=== PATIENT | male | born 1970 | race Caucasian/White ===

== ENCOUNTER 2024-07-30 14:32 | Emergency (ER) | payer MEDICAID, SELFPAY ==
[2024-07-30] VITALS (8 sets, daily range): BP systolic 90–109; BP diastolic 60–80; PULSE 59–72; RESP 12–19; TEMP 36.8; O2SAT 96–100
--- NOTE | ~2024-07-30 | XR_ITS ---
CHEST RADIOGRAPH, PA AND LATERAL CLINICAL HISTORY: chest pain . COMPARISON: None available TECHNIQUE: PA and lateral views of the chest. FINDINGS Sternal wires and mediastinal clips are identified, the wires are midline and intact. The remainder of the cardiomediastinal silhouette is otherwise unremarkable. The lungs are clear. IMPRESSION: No focal infiltrate or effusion. Reviewed, dictated and finalized at location A.
--- NOTE | 2024-07-30 14:47 | ECG_ITS ---
Test Date: 2024-07-30 19:29:19 Measurements Intervals Midnight Rate: 68 P: 55 MN: 164 QRS: 59 QRSD: 94 T: 58 QT: 438 QTc: 466 Interpretive Statements SINUS RHYTHM WITH SINUS ARRHYTHMIA NONSPECIFIC T-WAVE ABNORMALITY Compared to ECG 07/30/2024 14:48:03 NO SIGNIFICANT CHANGES Electronically Signed On 07-31-2024 12:09:00 CDT by Manny Allen M.D.
--- OUTSIDE RECORDS SUMMARY | 2024-07-30 14:59 | XMS_ITS | Patient Health Record ---
Author Organization [facility] Address [address] [place] [address] Care Team Providers Care Seed Packer Name Role Phone Sonya Melendez Primary Care Provider [phone] OrtegaAriel mazain Unavailable [phone] Elio Christianson Unavailable [phone] Tamia Chavarria Unavailable [phone] Allergies Allergen (clinical drug ingredient) Drug/Non Drug Allergy documented on EMR Reaction Allergy Type Onset Date Status No Known Drug Allergy Unknown Drug Allergy Active Results Component Value Reference Range Notes QuantiFERON-TB Gold Plus ([id number] [id number]) Reviewed date:07/24/2024 01:53:09 PM Interpretation: Performing Lab:[facility], [address] [facility], Phone - [phone], Director - Jaquelin Notes/Report: QuantiFERON Incubation Incubation performed. QuantiFERON-TB Gold Plus Negative Negative No response to M tuberculosis antigens detected. Infection with M tuberculosis is unlikely, but high risk individuals should be considered for additional testing (ATS/IDSA/CDC Clinical Practice Guidelines, 2017). The reference range is an Antigen minus Nil result of <0.35 IU/mL. Chemiluminescence immunoassay methodology QuantiFERON Criteria QuantiFERON-TB Gold Plus is a qualitative indirect test for M tuberculosis infection (including disease) and is intended for use in conjunction with risk assessment, radiography, and other medical and diagnostic evaluations. The QuantiFERON-TB Gold Plus result is determined by subtracting the Nil value from either TB antigen (Ag) value. The Mitogen tube serves as a control for the test. QuantiFERON TB1 Ag Value 0.04 QuantiFERON TB2 Ag Value 0.04 QuantiFERON Nil Value 0.02 QuantiFERON Mitogen Value 7.96 CMP 14 Comprehensive Metabol ic Panel* Reviewed date:07/24/2024 01:52:58 PM Interpretation: Performing Lab:[facility], [address] [place] [address], Phone - [phone], Director - [facility] Notes/Report: Glucose 109 70-99 mg/dL BUN 14 6-24 mg/dL Creatinine 1.12 0.76-1.27 mg/dL eGFR 78 >59 mL/min/1.73 BUN/Creatinine Ratio 13 9-20 Sodium 141 134-144 mmol/L Potassium 4.8 3.5-5.2 mmol/L Chloride 107 96-106 mmol/L Carbon Dioxide, Total 21 20-29 mmol/L Calcium 9.7 8.7-10.2 mg/dL Protein, Total 6.5 6.0-8.5 g/dL Albumin 3.7 3.8-4.9 g/dL Globulin, Total 2.8 1.5-4.5 g/dL Bilirubin, Total 0.2 0.0-1.2 mg/dL Alkaline Phosphatase 124 44-121 IU/L AST (SGOT) 147 0-40 IU/L ALT (SGPT) 220 0-44 IU/L CBC With Differential/Platel et* Reviewed date:07/24/2024 01:52:48 PM Interpretation: Performing [facility], [address] [facility], Phone - [phone], Director - [facility] Notes/Report: WBC 7.2 3.4-10.8 x10E3/uL RBC 4.17 4.14-5.80 x10E6/uL Hemoglobin 13.3 13.0-17.7 g/dL Hematocrit 39.8 37.5-51.0 % MCV 95 79-97 fL MCH 31.9 26.6-33.0 pg MCHC 33.4 31.5-35.7 g/dL RDW 13.2 11.6-15.4 % Platelets 187 150-450 x10E3/uL Neutrophils 55 Not Estab. % Lymphs 26 Not Estab. % Monocytes 14 Not Estab. % Eos 2 Not Estab. % Basos 1 Not Estab. % Neutrophils (Absolute) 4.0 1.4-7.0 x10E3/uL Lymphs (Absolute) 1.9 0.7-3.1 x10E3/uL Monocytes(Absolute) 1.0 0.1-0.9 x10E3/uL Eos (Absolute) 0.1 0.0-0.4 x10E3/uL Baso (Absolute) 0.1 0.0-0.2 x10E3/uL Immature Granulocytes 2 Not Estab. % Immature Grans (Abs) 0.1 0.0-0.1 x10E3/uL Breathalyzer Reviewed date:07/21/2024 03:51:04 PM Interpretation: Performing Lab: Notes/Report: CINDY 0.00 12 Panel Urine Drug Screen Reviewed date:07/21/2024 03:43:30 PM Interpretation: Performing Lab: Notes/Report: THC pos ZAIN neg MOP (OPI) neg AMP neg MET neg BAR neg BZO neg MDMA neg MTD neg OXY neg PCP neg BUP neg Reason For Referral No Information Medications Medication SIG (Take, Route, Frequency, Duration) Notes Start Date End Date Status ARIPiprazole 2 MG 1 tablet Orally Once a day for 30 days Active FLUoxetine HCl 20 MG 1 capsule Orally in the morning for 30 days Active Lisinopril 40 MG 1 tablet Orally Once a day Active Metoprolol Succinate ER 50 MG 1 tablet Orally Once a day Active hydrOXYzine Pamoate 25 MG 1 capsule Orally every 4 hours As needed Active Folic Acid 1 MG 1 tablet Orally Once a day Active Mirtazapine 15 MG half a tablet for 7. 5 mg Orally at bedtime for 30 days 07/28/2024 Active Vitamin B1 100 MG 1 tablet Orally Once a day Active Nicotine Step 1 21 MG/24HR 1 patch to sk in Transdermal Once a day Active Social History Tobacco Use: Social History Observation Description Date Details (start date - stop date) Current Smoker NA - NA PRAPARE Question Answer Notes Date Completed/Updated: 07/24/2024 What is your current housing situation? I do not have housing (staying with others, in a hotel, in a group home, living outside on the street, on a beach, or in a park) Are you worried about losing your housing? Yes What is the highest level of school that you have finished? High school diploma or GED What is your current work situation? Unemployed and seeking work In the past year, have you o r any family members you live with been unable to get any of the following when it was really needed? Check all that apply Food,Clothing,Utilities,Medicine or any health care (medical, dental, mental health or vision) Has lack of transportation k ept you from medical appointments, meetings, work or from getting things needed for daily living? Yes, it has kept me from medical appointments or from getting my medications,Yes, it has kept me from non-medical meetings, appointments, work, or getting things needed for daily living How often do you see or talk to people that you care about and feel close to? (For example: talking to friends on the phone, visiting friends or family, going to confucianism or club meetings) 1 or 2 times a week How stressed are you? Stress is when someone feels tense, nervous, anxious, or can\t sleep at night because their mind is troubled Very much In the past year have you sp ent more than 2 nights in a row in a longterm, mcfp, alf center, or juvenile correctional facility? No Are you a refugee? I choose not to answer this q uestion What country are you from? I choose not to answe r this question Do you feel physically and e motionally safe where you currently live? No In the past year, have you b een afraid of your partner or ex-partner? I have not had a partner in the past year PRAPARE Score: 16 Tobacco Control (Standard) Question Answer Notes Tobacco use: Current every day smoker Additional Findings: Tobacco user Moderate cigar ette smoker (10-19 cigs/day) Problems Problem Type SNOMED Code ICD Code Onset Dates Problem Status W/U Status Risk Notes Problem Generalized anxiety disorder (91275872) Generalized anxiety disorder (F41.1) Active confirmed Problem Essential hypertension (73402853) Essential (primary) hypertension (I10) Active confirmed Problem Hepatitis C (95013259) Hepatitis C (B19.20) Active confirmed Problem Overweight (458616692) Over weight (E66.3) Active confirmed Problem Insomnia due to mental disorder (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 Active confirmed Problem Ethanol abuse (67939789) ETOH abuse (F10.10) Active confirmed Problem Alcohol use disorder (8956526195) Alcohol use disorder (F10.99) 5 Active confirmed Problem Recurrent major depression (06692084) MDD (major depressive disorder), recurrent episode (F33.9) Active confirmed Vital Signs Heart Rate 72 /min 07/21/2024 Respiratory Rate 16 /min 07/21/2024 Blood pressure diastolic 60 mm Hg 07/21/2024 Oximetry 99 % 07/21/2024 Height 65 in 07/21/2024 Blood pressure systolic 100 mm Hg 07/21/2024 Weight 172 lbs 07/21/2024 BMI 28.62 kg/m2 07/21/2024 Encounters Encounter Location Date Provider Diagnosis [facility] [place] [address] 07/21/2024 Sonya Nora Over weight E66.3 ; Adult general medical exam Z00.00 ; ETOH abuse F10.10 ; Hepatitis C B19.20 and Essential (primary) hypertension I10 [address], [place] [address] 07/23/2024 Elio Christianson Cannabis use disorde r F12.90 ; Stimulant use disorder F15.90 and Alcohol use disorder F10.99 [facility] [address] [place] [place] [address] 07/24/2024 Tamia Chavarria ETOH abuse F10.10 [address], [place] [address] 07/28/2024 Elio Christianson Cannabis use disorde r F12.90 ; Generalized anxiety disorder F41.1 ; MDD (major depressive disorder), recurrent episode F33.9 ; Insomnia due to mental disorder F51.05 ; Stimulant use disorder F15.90 and Alcohol use disorder F10.99 [facility] [address] [place] [address] 07/22/2024 Elliot Ortega [facility] [place] [address] 07/27/2024 Elio Christianson Assessments Encounter Date Diagnosis (ICD Code) Assessment Notes Treatment Notes Treatment Clinical Notes Section Notes 07/21/2024 Over weight (ICD-10 - E66.3) 07/23/2024 Stimulant use disorder (ICD-10 - F15.90) 07/23/2024 Cannabis use disorder (ICD-10 - F12.90) 07/24/2024 ETOH abuse (ICD-10 - F10.10) 07/28/2024 Generalized anxiety disorder (ICD-10 - F41.1) 07/21/2024 Adult general medical exam (ICD-10 - Z00.00) 07/28/2024 Cannabis use disorder (ICD-10 - F12.90) 07/23/2024 Alcohol use disorder (ICD-10 - F10.99) 07/28/2024 MDD (major depressive disorder), recurrent episode (ICD-10 - F33.9) 07/21/2024 ETOH abuse (ICD-10 - F10.10) 07/21/2024 Hepatitis C (ICD-10 - B19.20) 07/28/2024 Insomnia due to mental disorder (ICD-10 - F51.05) Today's visit: Patient is a 53-year-old male who presents for a psychiatric evaluation over Zoom and is located in [place] currently on the [facility]. PHQ-9 score of 6, MARCELLA-7 score of 10, MDQ with 5 yes. Presents with sx consistent with likely MDD vs substance induced depression and Generalized Anxiety d/o. Recent [place] stay for SI with plan to jump in front of a train, while hospitalized reports he was started on fluoxetine 20 mg and increased to 40 mg in a 2-week time frame, started on Abilify 2 mg for adjunct of depression and started on Trazodone 50 mg for sleep. Sx exacerbated by homelessness, substance use disorders (alcohol, methamphetamine, marijuana), and lack of social support. Medical hx of MS in 2020 with quadruple bypass surgery, and has untreated hepatitis C. Reports previous response to mirtazapine in the past for sleep and was more effective than trazodone, will transition to off label use from FDA for insomnia at 7.5 mg. Current fluoxetine dose of 40mg appears high as a starting dose given recent initiation, will reduce to 20 mg for depression and anxiety sx with a plan to follow up in 4 weeks. Will continue Abilify at this time. Encourage ongoing Sobriety as he transitions to the [facility]'s residential unit. Recommend consideration to individual therapy in the future. No acute safety concerns the time of this appt, he is agreeable to treatment plan and was provided an opportunity to ask questions. Fluoxetine. Take as prescribed. Reviewed purpose (target depression and anxiety), benefits, and risks - including increased risk of suicide in patients age 18 - 24 years, have no effect upon patients age 25 - 30 years, and may lower the risk in patients 31 years old and older; mariel/hypomania; anxiety; sleep disturbance; nausea; dry mouth; increased bruising; sexual dysfunction; weight gain; liver toxicity, and serotonin syndrome. Refer to package insert for full listing of side effects. Many of these side effects resolve after taking the medication for 2 weeks. Notify the office if any concerns or significant side effects. Reviewed crisis resources. Begin mirtazapine. Take as prescribed. Reviewed purpose - reduce anxiety, improve sleep, decrease depression, and increase appetite; benefits - reduce anxiety, improve sleep, decrease depression, and increase appetite; and risks - including increased appetite, weight gain, increased thoughts of suicidality, and prompting manic episodes in some individuals. Abilify Take as prescribed. Reviewed purpose (mood stability), benefits, and risks - low blood pressure, metabolic syndrome with high cholesterol or high blood sugars, change in cardiac conduction, nausea, vomiting, temporary or permanent movement disorders, and akathisia. Explained that no medication can be guaranteed to be 100% safe for baby or mother. May self-administer medications or be administered own oral medications per [facility] protocols. Provided informed consent with understanding of side effects, adverse effects, risks and benefits as well as alternative treatments as previously discussed and with the above recommended medications & other aspects of the treatment program. Agrees to return sooner if symptoms worsen or suicidal or homicidal ideations occur. 07/21/2024 Essential (primary) hypertension (ICD-10 - I10) 07/28/2024 Stimulant use disorder (ICD-10 - F15.90) 07/28/2024 Alcohol use disorder (ICD-10 - F10.99) 07/21/2024 Other Continue treatment as recommended by [facility]'s Crisis Residential Unit staff. Encouraged patient to obtain routine medical care with patient's own primary care provider or establish as a patient at [facility] if no current primary care provider. 07/24/2024 Other Clinician met w ith client to assess needs for residential services. Clinician gathered information regarding historical presentation of mental health and substance use symptoms including withdrawal, HIV Risk assessment, psychiatric hospitalization history and presenting concern. Clinician reviewed PHQ9 and CSSRS assessments as well as conducted social drivers of health screening for the purposes of identifying additional service needs. Plan Of Treatment No Information Insurance Providers Payer Name Payer Address Payer Phone Subscriber Number Group Number Insured Name Patient Relationship to Insured Coverage Start Date Coverage End Date MEDICAID [address] [place] [phone] [id number] Tom Chung Self - patient is the insured 5 Medicaid Behav [employer] Telehealth [address] [place] [address] [id number] Tom Chung Self - patient is the insured 5 MEDICAID TELEHEALTH [address] [place] [address] [id number] Tom Chung Self - patient is the insured 5 Medical (General) History Medical History History ICD Code Heart attack in 2019 Hepatitis C - untreated Surgical History Surgery Date(Month/Year) quadruple bipass surgery 2019 Hospitalization History Reason Date(Month/Year) [place] inpatient for SI 06/2024
[2024-07-30 15:08] LABS: Basophils Absolute Auto 0.1 K/mm3 (0.0-0.1); Basophils Percent Auto 0.6 % (0.2-1.2); Eosinophils Absolute Auto 0.1 K/mm3 (0-0.3); Eosinophils Percent Auto 1.4 % (0-4.4); Hemoglobin 14.4 g/dL (14.0-18.0); Immature Granulocyte Absolute 0.06 K/mm3 (0.00-0.031); Immature Granulocyte Percent A 0.7 % (0-0.5); Lymphocytes Absolute Auto 2.86 K/mm3 (0.9-3.2); Lymphocytes Percent Auto 35.7 % (18.3-44.2); Mean Corpuscular HGB Conc 32.7 g/dl (32-36); Mean Corpuscular Hemoglobin 31.5 pg (26-34); Mean Corpuscular Volume 96.3 fl (80-100); Mean Platelet Volume 10.1 fl (7.4-10.4); Monocytes Absolute Auto 0.7 K/mm3 (0.1-0.6); Monocytes Percent Auto 8.6 % (2.6-8.5); Neutrophils Absolute Auto 4.2 K/mm3 (1.3-6.7); Platelet Count Result 273 k/mm3 (150-375); Red Blood Count 4.57 M/mm3 (4.6-6.20); Red Cell Distribution Width 14.4 % (11.5-14.5)
[2024-07-30 15:15] LABS: Alanine Aminotransferase 335 U/L (6-50); Albumin Level 4.3 g/dL (3.5-5.1); Alkaline Phosphatase 108 U/L (38-126); Anion Gap 11 mmol/L (4-12); Aspartate Amino Transferase 307 U/L (17-59); Bilirubin,Total 0.6 mg/dL (0.2-1.3); Blood Urea Nitrogen 28 mg/dL (9-20); Calcium 9.6 mg/dL (8.4-10.2); Carbon Dioxide 25 mmol/L (22-30); Chloride 105 mmol/L (98-107); Estimated CRCL calculation 42 ml/min; Estimated Glomerular Filt Rate 46; Glucose 97 mg/dL (65-110); Lipase 291 U/L (23-300); Potassium 4.8 mmol/L (3.4-5.0); Sodium 141 mmol/L (137-145)
--- NOTE | 2024-07-30 15:22 | ED.CHESTPAIN ---
HPI - Chest Pain General Chief Complaint: Chest Pain Stated Complaint: exterional SOB/CP, +ETOH Time Seen by Provider: 07/30/24 14:55 History of Present Illness HPI narrative: 53-year-old male with a past medical history including alcohol abuse, homelessness, previous coronary disease with a CABG in 2019. Patient presents to the emergency room with chief complaint of shortness of breath on exertion. Patient states that he was resting at a local car wash and police found him on the ground. They asked if he was okay and he states that he has just been feeling short of breath lately so they sent him to the hospital. Patient denies any chest pain or shortness a breath at rest. States that he can walk several blocks without getting dyspneic but sometimes gets more dyspneic with more strenuous activities. States that this is a long-standing issue and he has been homeless and not able to see a kiln stacker. Does still take metoprolol and lisinopril for blood pressure control as well as a baby aspirin but no other medications. Patient tells me he has previously been on psychiatric medications but threw them away. Does endorse drinking throughout the evening but does not feel intoxicated this time. Denies any chest pain or shortness a breath at rest, no chest pain or shortness a breath with positional changes, nausea, vomiting, abdominal pain, back pain. Was otherwise in his normal state of health. Related Data Allergies Allergy/AdvReac Type Severity Reaction Status Date / Time No Known Allergies Allergy Verified 07/30/24 14:57 Review of Systems Review of Systems: As reviewed above in HPI Exam Narrative: GENERAL: Slightly intoxicated but not any acute distress, awake and answering all questions HEAD: [Normocephalic, atraumatic.] EYES: [PERRLA and EOMI.] ENT: Nares clear, no rhinorrhea or epistaxis. Mucous membranes moist. NECK: Supple. CHEST: [Clear to auscultation. No respiratory distress.] Sternotomy scar present and well-healed HEART: [Regular rate and rhythm]. No murmur heard. [Normal peripheral pulses.] ABDOMEN: [Soft, nondistended], [nontender], [No rigidity or guarding] EXTREMITIES: Normal range of motion. [No edema.] SKIN: Warm, dry, no rash. NEURO: [No focal deficits]. Alert and oriented [x3.] PSYCH: [Normal mood and affect.] Course Vital Signs Vital signs: Vital Signs Temperature 36.8 C 07/30/24 14:45 Pulse Rate 59 L 07/30/24 14:45 Respiratory Rate 12 07/30/24 14:45 Blood Pressure 109/80 07/30/24 14:45 Pulse Oximetry 100 07/30/24 14:45 Oxygen Delivery Room Air 07/30/24 14:45 Temperature 36.8 C 07/30/24 14:45 Pulse Rate 64 07/30/24 16:30 Respiratory Rate 16 07/30/24 16:30 Blood Pressure 95/61 L 07/30/24 16:30 Pulse Oximetry 96 07/30/24 15:42 Oxygen Delivery Room Air 07/30/24 14:55 MDM - Chest Pain MDM Narrative Medical decision making narrative: 53-year-old male with a history of alcohol abuse and homelessness as well as a coronary disease history status post CABG in 2019. Patient presents to the emergency department after being found by police sleeping on a public property. Patient states he has been short of breath for a long time and they transported him to the hospital. Patient tells me he has had exertional dyspnea for many months and not had any changes recently. No chest pain or chest pain with exertion. Denies any leg swelling or history of blood clots. He does admit to significant alcohol use and is slightly intoxicated. Patient has normal vital signs with any tachycardia, fever, hypoxia, tachypnea. 2+ symmetric pulses in all extremities, clear breath sounds throughout. No signs of DVT or leg swelling on exam. Suspicion presently is for exertional dyspnea secondary to coronary disease versus alcohol dependence versus electrolyte imbalances. Possibility of aspiration or pneumonia versus pneumothorax. Low suspicion acute cardiac event. Will re-evaluate with CBC, CMP, troponin, EKG, chest x-ray. Patient's symptoms have been going on for many months and if he was not picked up by police he stated he would not have come to the hospital today so suspicion for any urgent or emergent concerns is low. Patient did get very worked up during his stay here in the emergency department while workup was pending. He requested something for his anxiety and was provided 1 mg of p.o. Ativan with good effect. His workup was unremarkable. Normal white blood cell count, no anemia or platelet concerns. Negative troponin x2. Normal electrolytes. Mildly elevated creatinine but unclear if this is baseline. No previous records for comparison. LFTs consistent with alcoholic liver disease from his alcohol abuse history. Negative BNP. Negative lipase. Chest x-ray without any infiltrates or effusion. EKG shows sinus rhythm, no ST segment elevations, depressions. Patient is clinically sober and has an unremarkable workup at this time with normal repeat vitals. He is ambulatory with a steady gait and safely discharged at this time with outpatient follow-up and provide a kiln stacker he can contact for outpatient evaluation. Bus tokens provided given that he is homeless. Medical Records Data Attestation: I reviewed the patient's medical records. Lab Data Attestation: I reviewed the patient's lab results. 07/30/24 14:52 07/30/24 14:52 Labs: Lab Results 07/30/24 07/30/24 Range/Units 14:52 18:12 WBC 8.0 (4.5-10.0) K/mm3 RBC 4.57 L (4.6-6.20) M/mm3 Hgb 14.4 (14.0-18.0) g/dL Hct 44.0 (42.0-52.0) % MCV 96.3 (80-100) fl MCH 31.5 (26-34) pg MCHC 32.7 (32-36) g/dl RDW 14.4 (11.5-14.5) % Plt Count 273 (150-375) k/mm3 MPV 10.1 (7.4-10.4) fl Immature Gran % (Auto) 0.7 H (0-0.5) % Neut % (Auto) 53.0 (45.5-73.1) % Lymph % (Auto) 35.7 (18.3-44.2) % [place] % (Auto) 8.6 H (2.6-8.5) % Eos % (Auto) 1.4 (0-4.4) % Baso % (Auto) 0.6 (0.2-1.2) % Lymph # (Auto) 2.86 (0.9-3.2) K/mm3 [place] # (Auto) 0.7 H (0.1-0.6) K/mm3 Eos # (Auto) 0.1 (0-0.3) K/mm3 Baso # (Auto) 0.1 (0.0-0.1) K/mm3 Abs Immat Gran (auto) 0.06 H (0.00-0.031) K/mm3 Absolute Neuts (auto) 4.2 (1.3-6.7) K/mm3 Absolute Nucleated RBC 0.000 (0.0-0.012) K/mm3 Nucleated RBC % 0.0 (0.0-0.2) % PT 13.8 (11.1-14.7) Seconds INR 1.0 APTT 26.8 (22.3-36.8) Seconds Sodium 141 (137-145) mmol/L Potassium 4.8 (3.4-5.0) mmol/L Chloride 105 (98-107) mmol/L Carbon Dioxide 25 (22-30) mmol/L Anion Gap 11 (4-12) mmol/L BUN 28 H (9-20) mg/dL Creatinine 1.58 H (0.7-1.3) mg/dL Estim Creat Clear Calc 42 ml/min Estimated GFR 46 L (59 - ) Glucose 97 (65-110) mg/dL Calcium 9.6 (8.4-10.2) mg/dL Total Bilirubin 0.6 (0.2-1.3) mg/dL AST 307 H (17-59) U/L ALT 335 H (6-50) U/L Alkaline Phosphatase 108 (38-126) U/L Troponin I < 0.012 < 0.012 (0.000-0.034) ng/mL NT-Pro-B Natriuret Pep 487 H (19.9-100) pg/mL Total Protein 8.0 (6.3-8.2) g/dL Albumin 4.3 (3.5-5.1) g/dL Lipase 291 (23-300) U/L Imaging Data Attestation: I personally reviewed and interpreted this imaging study as follows: My impression: Impressions Chest X-Ray 07/30/24 15:11 IMPRESSION: No focal infiltrate or effusion. Discharge Plan Discharge Clinical Impression: Exertional dyspnea, Alcohol abuse Patient Disposition: Home Condition: Stable Instructions: Antibiotic Form, Dyspnea (ED) Additional Instructions: All of your cardiac workup is reassuring, no signs of any heart damage at this time, no signs of heart failure and no pneumonia. Refrain from drinking significant amounts of alcohol as this will likely worsen your health status. Will provide you a kiln stacker you can contact and follow-up with. Return with any emergent concerns. Patient Language: Filipino Follow-up/Referrals: Inocente Gates MD [Physician] - 2 Weeks (Exertional dyspnea, hx CABG) UNKNOWN,DOCTOR [Primary Care Provider] - Time of Disposition: 18:51
[2024-07-30 15:27] LABS: Troponin I < 0.012 ng/mL (0.000-0.034)
[2024-07-30] MEDS: ASPIRIN 81 MG CHEWABLE TABLET 324 MG PO (15:30)
[2024-07-30] MEDS: Please add drug allergy info to patient profile. 1 EACH XX (15:30)
[2024-07-30 15:31] LABS: Partial Thromboplastin Time 26.8 Seconds (22.3-36.8); Prothrombin Time 13.8 Seconds (11.1-14.7)
[2024-07-30 15:52] LABS: NT Pro B Type Natriuretic Pept 487 pg/mL (19.9-100)
[2024-07-30] MEDS: LORazepam (*CRX) 1 MG TABLET PO (17:20)
--- NOTE | 2024-07-30 17:38 | ECG_ITS ---
Test Date: 2024-07-30 14:48:03 Measurements Intervals [place] Rate: 58 P: 26 [place]: 140 QRS: 55 QRSD: 97 T: 45 QT: 434 QTc: 427 Interpretive Statements SINUS BRADYCARDIA NONSPECIFIC T-WAVE ABNORMALITY No previous ECG available for comparison Electronically Signed On 07-31-2024 12:03:07 CDT by Manny Allen M.D.
[2024-07-30 18:42] LABS: Troponin I < 0.012 ng/mL (0.000-0.034)
== END 2024-07-30 20:17 | disposition home or self-care (01) ==
PROVIDERS: Emergency Medicine; Emergency Provider Student in an Organized Health Care Education/Training Program
DX: R06.09 Other forms of dyspnea (principal); F10.10 Alcohol abuse, uncomplicated; Z95.1 Presence of aortocoronary bypass graft; Z59.00 Homelessness unspecified; I25.10 Atherosclerotic heart disease of native coronary artery without angina pectoris
CPT/HCPCS: 36415; 71046; 80053; 83690; 83880; 84484; 85025; 85610; 85730; 93005; 99284; A9270